=== PATIENT | female | born 2005 | race Caucasian/White ===

== ENCOUNTER 2024-05-03 17:04 | Emergency (ER) | payer OTHER ==
[~2024-05-03] VITALS: Ht 172.7 cm; Wt 117.9 kg
[~2024-05-03 17:04] MED LIST: BENADRYL25 MG PO; PREDNISONE20 MG PO
== END 2024-05-03 17:50 | disposition home or self-care (01) ==
LOC: ED 17:04
DX: S93.401A Sprain of unspecified ligament of right ankle, initial encounter (principal); W01.0XXA Fall on same level from slipping, tripping and stumbling without subsequent striking against object, initial encounter; Y93.41 Activity, dancing; Y92.89 Other specified places as the place of occurrence of the external cause; Y99.8 Other external cause status